=== PATIENT | female | born 1980 | race Caucasian/White ===

== ENCOUNTER 2019-02-17 12:56 | Outpatient (CLI) | payer BC, OTHER ==
[2019-02-17] MEDS ORDERED: ACET-1600 PO (13:21)
[2019-02-17] MEDS ORDERED: IBUP200C8 PO (13:21)
[2019-02-17] MEDS ORDERED: CALC625T23 PO (13:21)
[2019-02-17] MEDS ORDERED: MULT-516 PO (13:21)
[2019-02-17] MEDS ORDERED: LIDOCAINE CREAM (13:21)
[2019-02-17] MEDS ORDERED: VITAMIN D PO (13:21)
== END 2019-02-17 23:59 | disposition home or self-care (01) ==
LOC: STAR 12:56
PROVIDERS: ATTEND Colon & Rectal Surgery
DX: Z02.9 Encounter for administrative examinations, unspecified (principal)

== ENCOUNTER 2019-03-02 06:03 | Day surgery (SDC) | payer BC ==
[~2019-03-02] VITALS: Ht 172.7 cm; Wt 69.0 kg
[~2019-03-02 06:03] MED LIST: ACET-1600 PO; CALC625T23 PO; IBUP200C8 PO; LIDOCAINE CREAM; MULT-516 PO; VITAMIN D PO
[2019-03-02 06:37] VITALS: BP 109/74
[2019-03-02] MEDS ORDERED: BUPIVACAINE/EPI 0.5% 1:200K ONE (06:51)
[2019-03-02] MEDS ORDERED: LACTATED RINGERS 1,000 ML IV SCH (07:02)
[2019-03-02] MEDS ORDERED: FENTANYL PF 250 MCG/5ML ONE (07:15)
[2019-03-02] MEDS ORDERED: PROPOFOL 50 ML ONE (07:15)
[2019-03-02] MEDS ORDERED: MIDAZOLAM 1 MG/ML, 2ML ONE (07:15)
[2019-03-02] MEDS ORDERED: ONDANSETRON 2MG/ML, 2ML ONE (07:36)
[2019-03-02] MEDS ORDERED: DEXAMETHASONE 4 MG/ML, 1ML ONE (07:36)
[2019-03-02] MEDS ORDERED: BUPIVACAINE/PF-EPI 0.5% 1:200K INFIL ONE (07:55)
[2019-03-02] MEDS ORDERED: DIPHENHYDRAMINE 50 MG/ML, 1ML IVPush PRN (08:00)
[2019-03-02] MEDS ORDERED: OXYcodone 5 MG/5 ML ORAL.SOL UDC PO PRN (08:00)
[2019-03-02] MEDS ORDERED: HYDROmorphone 2 MG/ML, 1ML IVPush PRN (08:00)
[2019-03-02] MEDS ORDERED: EPHEDRINE 50 MG/ML, 1ML IM PRN (08:00)
[2019-03-02] MEDS ORDERED: PROMETHAZINE 25 MG/ML, 1ML IV PRN (08:00)
[2019-03-02] MEDS ORDERED: MIDAZOLAM 1 MG/ML, 2ML IV PRN (08:00)
[2019-03-02] MEDS ORDERED: ONDANSETRON ODT 8 MG PO PRN (08:00)
[2019-03-02] MEDS ORDERED: ONDANSETRON 2MG/ML, 2ML IV PRN (08:00)
[2019-03-02] MEDS ORDERED: EPHEDRINE 50 MG/ML, 1ML IVPush PRN (08:00)
[2019-03-02] MEDS ORDERED: DIAZEPAM 5 MG/ML, 2ML IVPush PRN (08:00)
[2019-03-02] MEDS ORDERED: OXYcodone 5 MG/5 ML ORAL.SOL UDC ONE (08:22)
[2019-03-02] MEDS ORDERED: FENTANYL PF 100 MCG/2ML ONE (08:22)
[2019-03-02] MEDS ORDERED: ACETAMINOPHEN 650 MG/20.3 ML UDC ONE (08:22)
[2019-03-02] MEDS: FENTANYL PF 100 MCG/2ML IV PRN ×2 (08:27→08:40)
[2019-03-02] MEDS ORDERED: ACETAMINOPHEN 650 MG/20.3 ML UDC PO PRN (08:30)
== END 2019-03-02 10:15 | disposition home or self-care (01) ==
LOC: OUT 06:03
PROVIDERS: ATTEND Colon & Rectal Surgery
DX: K60.2 Anal fissure, unspecified (principal); K64.4 Residual hemorrhoidal skin tags; K64.8 Other hemorrhoids; Z72.89 Other problems related to lifestyle; Z88.8 Allergy status to other drugs, medicaments and biological substances; Z98.890 Other specified postprocedural states
CPT/HCPCS: 46080; 81025; C1729; J1100; J2250; J2405; J2704; J3010; J7120